=== PATIENT | female | born 1980 | race Caucasian/White ===

== ENCOUNTER 2017-08-13 20:54 | Emergency (ER) | payer MEDICAID | END 2017-08-13 21:47 | disposition left against medical advice (07) | LOC: D.ER 20:54 | DX: Z02.83 Encounter for blood-alcohol and blood-drug test (principal) ==

== ENCOUNTER 2017-08-14 13:25 | Emergency (ER) | payer MEDICAID ==
[2017-08-14 14:53] LABS: HCG URINE NEGATIVE (NEGATIVE)
[2017-08-14 15:08] LABS: UDS - AMPHET NEGATIVE QUAL (NEGATIVE); UDS - BARB NEGATIVE QUAL (NEGATIVE); UDS - BENZO NEGATIVE QUAL (NEGATIVE); UDS - COCAINE NEGATIVE QUAL (NEGATIVE); UDS - OPIATE NEGATIVE QUAL (NEGATIVE); UDS - PCP NEGATIVE QUAL (NEGATIVE); UDS - THC NEGATIVE QUAL (NEGATIVE)
== END 2017-08-14 15:52 | disposition home or self-care (01) ==
LOC: D.ER 13:25
PROVIDERS: Family Medicine
DX: R10.9 Unspecified abdominal pain (principal)